=== PATIENT | female | born 1970 | race Two or more races ===

== ENCOUNTER 2017-12-03 16:28 | Emergency (ER) | payer OTHER ==
[~2017-12-03] VITALS: Ht 154.9 cm; Wt 129.3 kg
[2017-12-03 16:58] VITALS: BP 145/101
== END 2017-12-03 17:57 | disposition home or self-care (01) ==
LOC: ER 16:29
DX: R42 Dizziness and giddiness (principal); I10 Essential (primary) hypertension; E11.9 Type 2 diabetes mellitus without complications; E66.9 Obesity, unspecified; Z88.5 Allergy status to narcotic agent
CPT/HCPCS: 99283; A4606; Z7610

== ENCOUNTER 2018-05-25 10:49 | Emergency (ER) | payer OTHER ==
[~2018-05-25] VITALS: Ht 154.9 cm; Wt 127.0 kg
[2018-05-25 11:19] LABS: APPEARANCE,URINE Clear (CLEAR); BILIRUBIN,URINE Negative (NEGATIVE); BLOOD, URINE Negative Ery/uL (NEGATIVE); COLOR,URINE Yellow (YELLOW); KETONES,URINE Negative (NEGATIVE); LEUKOCYTE ESTERASE ,URINE Negative (NEGATIVE); NITRITE, URINE Negative (NEGATIVE); PROTEIN,URINE Negative (NEGATIVE); UGLUCOSE Negative (NEGATIVE); UROBILINOGEN,URINE 0.2 EU/dL (0.2)
[2018-05-25 11:21] LABS: BASOPHILS % (AUTO) 0.4 % (0.0-2.0); EOSINOPHILS % (AUTO) 3.2 % (0.0-6.0); HEMATOCRIT 42 % (33-45); HEMOGLOBIN 13.8 g/dL (11.5-14.8); LYMPHOCYTES # (AUTO) 2.7 /CMM (0.8-4.8); LYMPHOCYTES % (AUTO) 25.2 % (20.0-44.0); MEAN CORPUSCULAR HGB CONC 33 g/dl (31.0-36.0); MEAN CORPUSCULAR VOLUME 85 fL (82-100); MONOCYTES # (AUTO) 0.7 /CMM (0.1-1.30); MONOCYTES % (AUTO) 6.2 % (2.0-12.0); PLATELET COUNT (AUTO) 492 /CMM (150-450); RED BLOOD CELL COUNT(AUTO) 4.93 MIL/uL (4.0-5.2); WHITE BLOOD COUNT (AUTO) 10.7 K/uL (4.3-11.0)
--- NOTE | 2018-05-25 11:26 | NUR ---
patient presented to the ER Ran out of bp meds 3wks-My head feels like its inflated. on room air, breathing evenly and unlabored. connected to the monitor and pulse ox. kept comfortbale. will continue to monitor accordingly.
[2018-05-25 11:31] LABS: CALCIUM, SERUM 9.5 mg/dL (8.5-10.1); CARBON DIOXIDE 30 mmol/L (21-32); CHLORIDE 104 mmol/L (98-107); CREATININE 0.6 mg/dL (0.6-1.3); GLUCOSE 122 mg/dL (74-106); POTASSIUM 4.3 mmol/L (3.5-5.1); SODIUM SERUM 138 mmol/L (136-145); UREA NITROGEN, BLOOD 15 mg/dL (7-18)
[2018-05-25 11:37] LABS: ALANINE AMINOTRANSFERASE 22 U/L (12-78); ALBUMIN 3.4 g/dL (3.4-5.0); ALKALINE PHOSPHATASE 130 U/L (46-116); ASPARTATE AMINOTRANSFERASE 15 U/L (15-37); BILIRUBIN,DIRECT 0.1 mg/dL (0.0-0.2); BILIRUBIN,TOTAL 0.2 mg/dL (0.2-1.0); TOTAL PROTEIN, SERUM 8.1 g/dL (6.4-8.2)
[2018-05-25 14:08] VITALS: BP 129/81
--- NOTE | 2018-05-25 14:09 | NUR ---
Patient discharged to home in stable condition. Written and verbal after care instructions given. Patient verbalizes understanding of instruction.
== END 2018-05-25 14:09 | disposition home or self-care (01) ==
LOC: ER 10:55
DX: R51 Headache (principal); I10 Essential (primary) hypertension; E11.9 Type 2 diabetes mellitus without complications; R00.2 Palpitations; R00.0 Tachycardia, unspecified; F41.9 Anxiety disorder, unspecified; E66.9 Obesity, unspecified; Z88.5 Allergy status to narcotic agent; Z76.0 Encounter for issue of repeat prescription
CPT/HCPCS: 36415; 71045; 80048; 80076; 81001; 84484; 84703; 85025; 93005; 99284; A4606; 81000-TC

== ENCOUNTER 2019-01-25 11:27 | Emergency (ER) | payer MEDICAID, OTHER ==
[~2019-01-25] VITALS: Ht 154.9 cm; Wt 117.9 kg
--- NOTE | 2019-01-25 11:41 | NUR ---
PT BIB SELF C/O ABDOMINAL PAIN STARTED YESTERDAY, PT IS AAOX4, NOT IN RESPIRATORY DISTRESS, HOOKED TO MONITOR, KEPT RESTED AND COMFORTABLE, WILL CONTINUE TO MONITOR.
--- NOTE | 2019-01-25 11:44 | NUR ---
AT BEDSIDE FOR EVAL.
--- NOTE | 2019-01-25 11:48 | NUR ---
IV LINE ESTABLISHED, BLOOD DRAWN AND SENT TO LAB.
[2019-01-25] MEDS ORDERED: FAMOTIDINE/PF INJ 20 MG/2 ML VIAL IV ONE ×2 (11:56→12:00)
[2019-01-25] MEDS ORDERED: ONDANSETRON HCL/PF 4 MG/2 ML VIAL ONE (11:56)
--- NOTE | 2019-01-25 11:59 | NUR ---
MANAGER DEPARTMENT AT BEDSIDE FOR XRAY.
[2019-01-25] MEDS ORDERED: ONDANSETRON HCL/PF 4 MG/2 ML VIAL IVP ONE (12:00)
[2019-01-25] MEDS ORDERED: IV NS 0.9% 1,000 ML BAG IV ONE (12:00)
[2019-01-25 12:14] LABS: BASOPHILS # (AUTO) 0.1 /CMM (0.0-0.2); BASOPHILS % (AUTO) 0.7 % (0.0-2.0); EOSINOPHILS % (AUTO) 2.2 % (0.0-6.0); HEMATOCRIT 44 % (33-45); HEMOGLOBIN 14.2 g/dL (11.5-14.8); LYMPHOCYTES # (AUTO) 1.9 /CMM (0.8-4.8); LYMPHOCYTES % (AUTO) 24.4 % (20.0-44.0); MEAN CORPUSCULAR HGB CONC 32 g/dl (31.0-36.0); MEAN CORPUSCULAR VOLUME 86 fL (82-100); MONOCYTES # (AUTO) 0.4 /CMM (0.1-1.30); MONOCYTES % (AUTO) 5.5 % (2.0-12.0); NEUTROPHILS # (AUTO) 5.2 /CMM (1.8-8.9); NEUTROPHILS % (AUTO) 67.2 % (43.0-81.0); PLATELET COUNT (AUTO) 467 /CMM (150-450); RED BLOOD CELL COUNT(AUTO) 5.13 MIL/uL (4.0-5.2); WHITE BLOOD COUNT (AUTO) 7.8 K/uL (4.3-11.0)
[2019-01-25 12:19] LABS: APPEARANCE,URINE Clear (CLEAR); BILIRUBIN,URINE SMALL (NEGATIVE); BLOOD, URINE Negative Ery/uL (NEGATIVE); COLOR,URINE Yellow (YELLOW); KETONES,URINE Trace (NEGATIVE); LEUKOCYTE ESTERASE ,URINE Negative (NEGATIVE); NITRITE, URINE Negative (NEGATIVE); PH,URINE 6.5 (5.0-8.0); PROTEIN,URINE Trace mg/dl (NEGATIVE); UGLUCOSE Negative (NEGATIVE); UROBILINOGEN,URINE 0.2 EU/dL (0.2)
[2019-01-25 12:28] LABS: BACTERIA,URINE Few /HPF (None Seen); RBC,URINE 0-2 /HPF (0-2); SQUAMOUS EPITHELIAL CELL,UR Few /HPF (None Seen)
[2019-01-25 12:32] LABS: CALCIUM, SERUM 8.7 mg/dL (8.5-10.1); CREATININE 0.9 mg/dL (0.6-1.3); POTASSIUM 3.8 mmol/L (3.5-5.1)
[2019-01-25 12:38] LABS: ALBUMIN 3.3 g/dL (3.4-5.0); BILIRUBIN,DIRECT 0.1 mg/dL (0.0-0.2); BILIRUBIN,TOTAL 0.3 mg/dL (0.2-1.0); TOTAL PROTEIN, SERUM 8.5 g/dL (6.4-8.2)
--- NOTE | 2019-01-25 12:47 | NUR ---
PT IS BACK FROM THE CT SCAN.
[2019-01-25 13:16] VITALS: BP 138/81
--- NOTE | 2019-01-25 13:16 | NUR ---
IV removed. Catheter intact and site benign. Pressure and 4x4 applied to site. No bleeding noted. Patient discharged to home in stable condition. Written and verbal after care instructions given. Patient verbalizes understanding of instruction.
== END 2019-01-25 13:17 | disposition home or self-care (01) ==
LOC: ER 11:27
DX: R10.84 Generalized abdominal pain (principal); I10 Essential (primary) hypertension; E11.9 Type 2 diabetes mellitus without complications; Z88.6 Allergy status to analgesic agent
CPT/HCPCS: 36415; 71045; 74176; 80048; 80076; 81001; 83690; 85025; 96374; 96375; 99284; J2405; J3490; J7030; 81000-TC

== ENCOUNTER 2019-05-18 11:31 | Emergency (ER) | payer OTHER ==
[~2019-05-18] VITALS: Ht 154.9 cm; Wt 129.3 kg
--- NOTE | 2019-05-18 11:45 | NUR ---
patient bibhusband c/o pelvic cramping with nausea x 2 days. on room air, breathing evenly and unlabored. kept comfortable, will continue to monitor accordingly.
[2019-05-18] MEDS ORDERED: MAGNESIUM CITRATE 296 ML BOTTLE ONE (13:11)
[2019-05-18 13:18] VITALS: BP 133/91
--- NOTE | 2019-05-18 13:19 | NUR ---
Patient discharged to home in stable condition. Written and verbal after care instructions given. Patient verbalizes understanding of instruction.
[2019-05-18] MEDS ORDERED: MAGNESIUM CITRATE 296 ML BOTTLE PO ONE (13:30)
== END 2019-05-18 13:18 | disposition home or self-care (01) ==
LOC: ER 11:31
DX: K59.00 Constipation, unspecified (principal); I10 Essential (primary) hypertension; J45.909 Unspecified asthma, uncomplicated; E11.9 Type 2 diabetes mellitus without complications; Z88.6 Allergy status to analgesic agent
CPT/HCPCS: 74018

== ENCOUNTER 2019-10-18 20:51 | Emergency (ER) | payer MEDICAID, OTHER ==
[~2019-10-18] VITALS: Ht 154.9 cm; Wt 119.7 kg
--- NOTE | 2019-10-18 21:23 | NUR ---
BIBS FROM HOME TO ER BED 7. AAOX4. NOT IN RESP DISTRESS. AMBULATORY. CAMEI IN FOR LOWER ABDOMINAL PAIN X 7DAYS. DULL ACHING SENSATION /. REPORT NAUSEA, VOMMITING AND DIARRHEA. PT REPORTS THAT SHE HAVENT HAD A GOOD BOWEL MOVEMENT FOR THE PAST 7 DAYS, SHE DID REPORT HAVING A SMALL AMOUNT THIS MORNING. URINE COLLECTED AND SENT TO LAB. JOSE ALFREDO [facility]BROOK AT THE BEDSIDE FOR EVAL. AWAITING ORDERS
[2019-10-18] MEDS ORDERED: ONDANSETRON 4 MG TAB.RAPDIS SL ONE (21:30)
[2019-10-18] MEDS ORDERED: ONDANSETRON 4 MG TAB.RAPDIS ONE (21:32)
[2019-10-18 21:33] LABS: APPEARANCE,URINE Clear (CLEAR); BILIRUBIN,URINE Negative (NEGATIVE); BLOOD, URINE Negative Ery/uL (NEGATIVE); COLOR,URINE Yellow (YELLOW); KETONES,URINE Negative (NEGATIVE); LEUKOCYTE ESTERASE ,URINE Trace (NEGATIVE); NITRITE, URINE Negative (NEGATIVE); PH,URINE 6.5 (5.0-8.0); PROTEIN,URINE Negative (NEGATIVE); UGLUCOSE Negative (NEGATIVE); UROBILINOGEN,URINE 0.2 EU/dL (0.2)
[2019-10-18 21:45] LABS: BASOPHILS % (AUTO) 0.3 % (0.0-2.0); EOSINOPHILS % (AUTO) 4.4 % (0.0-6.0); HEMATOCRIT 42 % (33-45); HEMOGLOBIN 13.3 g/dL (11.5-14.8); LYMPHOCYTES # (AUTO) 2.6 /CMM (0.8-4.8); LYMPHOCYTES % (AUTO) 18.7 % (20.0-44.0); MEAN CORPUSCULAR HGB CONC 32 g/dl (31.0-36.0); MEAN CORPUSCULAR VOLUME 83 fL (82-100); MONOCYTES # (AUTO) 0.6 /CMM (0.1-1.30); NEUTROPHILS # (AUTO) 9.9 /CMM (1.8-8.9); NEUTROPHILS % (AUTO) 72.6 % (43.0-81.0); PLATELET COUNT (AUTO) 543 /CMM (150-450); RED BLOOD CELL COUNT(AUTO) 5.01 MIL/uL (4.0-5.2); WHITE BLOOD COUNT (AUTO) 13.7 K/uL (4.3-11.0)
[2019-10-18 22:02] LABS: ALBUMIN 3.2 g/dL (3.4-5.0); BILIRUBIN,DIRECT 0.1 mg/dL (0.0-0.2); BILIRUBIN,TOTAL 0.1 mg/dL (0.2-1.0); CREATININE 0.8 mg/dL (0.6-1.3); POTASSIUM 3.9 mmol/L (3.5-5.1); TOTAL PROTEIN, SERUM 7.8 g/dL (6.4-8.2)
[2019-10-18 22:32] LABS: BACTERIA,URINE Few /HPF (None Seen); RBC,URINE 0-2 /HPF (0-2); SQUAMOUS EPITHELIAL CELL,UR Moderate /HPF (None Seen)
[2019-10-18] MEDS ORDERED: ACETAMINOPHEN ES 500 MG TABLET ONE (22:48)
--- NOTE | 2019-10-18 22:52 | NUR ---
PT IS COMPLAINING OF PAIN. JOSE ALFREDO [facility] MADE AWARE. ORDERED TO GIVE TYLENOL 1000MG PO X 1. NOTED AND CARRIED OUT.
[2019-10-18] MEDS ORDERED: ACETAMINOPHEN ES 500 MG TABLET PO ONE (23:00)
[2019-10-18] MEDS ORDERED: KETOROLAC TROMETHAMINE INJ 30 MG/ML VIAL ONE (23:04)
[2019-10-18] MEDS ORDERED: CIPROFLOXACIN HCL 500 MG TABLET ONE (23:15)
[2019-10-18] MEDS ORDERED: METRONIDAZOLE 500 MG TABLET ONE (23:15)
[2019-10-18] MEDS ORDERED: KETOROLAC TROMETHAMINE INJ 60 MG/2 ML VIAL IM ONE (23:30)
[2019-10-18] MEDS ORDERED: CIPROFLOXACIN HCL 250 MG TABLET PO ONE (23:30)
[2019-10-18] MEDS ORDERED: METRONIDAZOLE 500 MG TABLET PO ONE (23:30)
[2019-10-18 23:37] VITALS: BP 164/92
--- NOTE | 2019-10-18 23:37 | NUR ---
Patient discharged to home in stable condition. Written and verbal after care instructions given. Patient verbalizes understanding of instruction. Pt ambulatory with a steady gait
== END 2019-10-18 23:38 | disposition home or self-care (01) ==
LOC: ER 20:51
DX: K57.32 Diverticulitis of large intestine without perforation or abscess without bleeding (principal); K59.00 Constipation, unspecified; E66.01 Morbid (severe) obesity due to excess calories; D72.829 Elevated white blood cell count, unspecified; E11.65 Type 2 diabetes mellitus with hyperglycemia; R74.8 Abnormal levels of other serum enzymes; I10 Essential (primary) hypertension; J45.909 Unspecified asthma, uncomplicated; Z68.42 Body mass index [BMI] 45.0-49.9, adult; Z90.49 Acquired absence of other specified parts of digestive tract; Z90.710 Acquired absence of both cervix and uterus; Z88.5 Allergy status to narcotic agent
CPT/HCPCS: 36415; 74021; 80048; 80076; 81001; 83690; 85025; 96372; 99284; J1885; Q0162; 81000-TC

== ENCOUNTER 2020-09-26 05:57 | Emergency (ER) | payer OTHER ==
[~2020-09-26] VITALS: Ht 154.9 cm; Wt 125.2 kg
--- NOTE | 2020-09-26 06:10 | NUR ---
PATIENT BIBS FOR C/O BILATERAL ABD PAIN AND NAUSEA X 2 DAYS. HX OF DIVERTICULITIS. PATIENT A/O X 4, RR EVEN AND UNLABORED, NO SOB NOTED, PATIENT CONNECTED TO BONDING MACHINE TENDER AND POX. WILL CONTINUE TO MONITOR.
--- NOTE | 2020-09-26 06:11 | NUR ---
URINE COLLECTED AND SENT TO LAB
[2020-09-26] MEDS ORDERED: KETOROLAC TROMETHAMINE INJ 30 MG/ML VIAL IV ONE (06:30)
[2020-09-26] MEDS ORDERED: ONDANSETRON HCL/PF 4 MG/2 ML VIAL IVP ONE (06:30)
[2020-09-26] MEDS ORDERED: IV NS 0.9% 1,000 ML BAG IV ONE (06:30)
[2020-09-26] MEDS ORDERED: ONDANSETRON HCL/PF 4 MG/2 ML VIAL ONE (06:32)
[2020-09-26] MEDS ORDERED: KETOROLAC TROMETHAMINE INJ 30 MG/ML VIAL ONE (06:32)
[2020-09-26 06:52] LABS: BASOPHILS # (AUTO) 0.1 K/uL (0.0-0.2); BASOPHILS % (AUTO) 0.6 % (0.0-2.0); HEMATOCRIT 41 % (33-45); HEMOGLOBIN 13.5 g/dL (11.5-14.8); LYMPHOCYTES # (AUTO) 2.6 K/uL (0.8-4.8); LYMPHOCYTES % (AUTO) 20.7 % (20.0-44.0); MEAN CORPUSCULAR HGB CONC 33 g/dl (31.0-36.0); MEAN CORPUSCULAR VOLUME 83 fL (82-100); MONOCYTES # (AUTO) 0.5 K/uL (0.1-1.30); MONOCYTES % (AUTO) 4.2 % (2.0-12.0); NEUTROPHILS # (AUTO) 9.1 K/uL (1.8-8.9); NEUTROPHILS % (AUTO) 72.5 % (43.0-81.0); PLATELET COUNT (AUTO) 494 K/uL (150-450); RED BLOOD CELL COUNT(AUTO) 4.98 MIL/uL (4.0-5.2); WHITE BLOOD COUNT (AUTO) 12.5 K/uL (4.3-11.0)
[2020-09-26 06:59] LABS: BILIRUBIN,URINE NEGATIVE (NEGATIVE); COLOR,URINE YELLOW (YELLOW); LEUKOCYTE ESTERASE ,URINE TRACE (NEGATIVE); NITRITE, URINE NEGATIVE (NEGATIVE); PROTEIN,URINE NEGATIVE (NEGATIVE); UGLUCOSE NEGATIVE (NEGATIVE); UROBILINOGEN,URINE 0.2 EU/dL (0.2)
[2020-09-26 07:00] LABS: ALBUMIN 3.4 g/dL (3.4-5.0); BILIRUBIN,DIRECT 0.1 mg/dL (0.0-0.2); BILIRUBIN,TOTAL 0.4 mg/dL (0.2-1.0); CALCIUM, SERUM 9.1 mg/dL (8.5-10.1); CREATININE 0.6 mg/dL (0.6-1.3); TOTAL PROTEIN, SERUM 8.4 g/dL (6.4-8.2)
[2020-09-26 07:16] LABS: POTASSIUM 3.9 mmol/L (3.5-5.1)
[2020-09-26 07:42] LABS: BACTERIA,URINE Few /HPF (None Seen); RBC,URINE 0-2 /HPF (0-2); SQUAMOUS EPITHELIAL CELL,UR Few /HPF (None Seen)
[2020-09-26] MEDS ORDERED: IV NS 0.9% 250 ML IV ONE (07:51)
[2020-09-26] MEDS ORDERED: IOHEXOL-300 100 ML VIAL IV ONE (07:51)
[2020-09-26] MEDS ORDERED: CT SWABBABLE VALVE TRANS SET 1 EA INFUS.SET MC ONE (07:51)
--- NOTE | 2020-09-26 08:05 | NUR ---
PT TO RADIOLOGY FOR CT ABDOMEN/PELVIS VIA WHEELCHAIR.
[2020-09-26] MEDS ORDERED: ONDA4TAB5 PO (08:42)
[2020-09-26] MEDS ORDERED: HYDR-4275 PO (08:42)
[2020-09-26] MEDS ORDERED: AMOX-430 PO (08:42)
--- NOTE | 2020-09-26 08:50 | NUR ---
Patient a/ox4, breathing even and unlabored, no sob noted. IV removed. Catheter intact and site benign. Pressure and 4x4 applied to site. No bleeding noted.
--- NOTE | 2020-09-26 08:52 | NUR ---
Patient discharged to home in stable condition. Written and verbal after care instructions given. Patient verbalizes understanding of instruction.
[2020-09-26 08:53] VITALS: BP 142/89
== END 2020-09-26 08:53 | disposition home or self-care (01) ==
LOC: ER 05:57
DX: K57.32 Diverticulitis of large intestine without perforation or abscess without bleeding (principal); R19.7 Diarrhea, unspecified; I10 Essential (primary) hypertension; J45.909 Unspecified asthma, uncomplicated; E11.9 Type 2 diabetes mellitus without complications; Z98.890 Other specified postprocedural states; Z90.49 Acquired absence of other specified parts of digestive tract; Z88.6 Allergy status to analgesic agent; Z79.899 Other long term (current) drug therapy
CPT/HCPCS: 36415; 74177; 80048; 80076; 81001; 83690; 84703; 85025; 96361; 96374; 96375; 99285; J1885; J2405; J7030; J7050; Q9967

== ENCOUNTER 2020-12-11 08:42 | Emergency (ER) | payer OTHER ==
[~2020-12-11] VITALS: Ht 154.9 cm; Wt 124.7 kg
[~2020-12-11 08:42] MED LIST: AMOX-430 PO; HYDR-4275 PO; ONDA4TAB5 PO
--- NOTE | 2020-12-11 08:55 | NUR ---
PT AMBULATORY TO ER BED 05 C/O SHORTNESS OF BREATH X 2 DAYS, STATES BEEN USING HER INHALER BUT IS NOT HELPING. STATES SYMPTOMS WORST TODAY W/ SOME BURNING SENSATION TO CHEST. PLACED ON MONITOR. O2 SATURATION 90% ON RA. AWAITING MD ACEVEDO.
--- NOTE | 2020-12-11 09:06 | NUR ---
DR REY AT BEDSIDE FOR EVAL.
[2020-12-11] MEDS ORDERED: methylPREDNISolone SOD SUCC 125 MG/2ML VIAL ONE (09:22)
[2020-12-11] MEDS ORDERED: ALBUTEROL FS 2.5 MG/3 ML VIAL.NEB ONE (09:27)
[2020-12-11] MEDS ORDERED: IPRATROPIUM NEB FS 0.5 MG/2.5 ML AMPUL.NEB ONE (09:27)
[2020-12-11] MEDS ORDERED: ALBU18HF2 INH (09:28)
[2020-12-11] MEDS ORDERED: PRED20TA PO (09:28)
[2020-12-11] MEDS ORDERED: AMOX-430 PO (09:28)
[2020-12-11] MEDS ORDERED: AZIT250T13 PO (09:28)
[2020-12-11] MEDS ORDERED: ALBUTEROL FS 2.5 MG/3 ML VIAL.NEB CONTNEB ONE (09:30)
[2020-12-11] MEDS ORDERED: methylPREDNISolone SOD SUCC 125 MG/2ML VIAL IV ONE (09:30)
[2020-12-11] MEDS ORDERED: IPRATROPIUM NEB FS 0.5 MG/2.5 ML AMPUL.NEB NEB ONE (09:30)
--- NOTE | 2020-12-11 09:32 | NUR ---
RT AT BEDSIDE FOR BREATHING TREATMENT.
[2020-12-11 09:38] LABS: BASOPHILS # (AUTO) 0.1 K/uL (0.0-0.2); BASOPHILS % (AUTO) 1.2 % (0.0-2.0); EOSINOPHILS % (AUTO) 2.7 % (0.0-6.0); HEMATOCRIT 40 % (33-45); HEMOGLOBIN 12.8 g/dL (11.5-14.8); LYMPHOCYTES # (AUTO) 1.5 K/uL (0.8-4.8); MEAN CORPUSCULAR HGB CONC 32 g/dl (31.0-36.0); MEAN CORPUSCULAR VOLUME 84 fL (82-100); MONOCYTES # (AUTO) 0.3 K/uL (0.1-1.30); MONOCYTES % (AUTO) 2.8 % (2.0-12.0); NEUTROPHILS # (AUTO) 9.3 K/uL (1.8-8.9); NEUTROPHILS % (AUTO) 80.3 % (43.0-81.0); PLATELET COUNT (AUTO) 471 K/uL (150-450); RED BLOOD CELL COUNT(AUTO) 4.81 MIL/uL (4.0-5.2); WHITE BLOOD COUNT (AUTO) 11.5 K/uL (4.3-11.0)
[2020-12-11 09:45] LABS: CALCIUM, SERUM 8.7 mg/dL (8.5-10.1); CARBON DIOXIDE 28 mmol/L (21-32); CHLORIDE 103 mmol/L (98-107); CREATININE 0.6 mg/dL (0.6-1.3); GLUCOSE 135 mg/dL (74-106); POTASSIUM 3.6 mmol/L (3.5-5.1); SODIUM SERUM 140 mmol/L (136-145); UREA NITROGEN, BLOOD 10 mg/dL (7-18)
--- NOTE | 2020-12-11 09:46 | NUR ---
covid swab collected and sent to lab.
--- NOTE | 2020-12-11 11:16 | NUR ---
Patient discharged to home in stable condition. Written and verbal after care instructions given. Patient verbalizes understanding of instruction.IV removed. Catheter intact and site benign. Pressure and 4x4 applied to site. No bleeding noted.
[2020-12-11 11:17] VITALS: BP 142/65
== END 2020-12-11 11:17 | disposition home or self-care (01) ==
LOC: ER 08:52
DX: J45.901 Unspecified asthma with (acute) exacerbation (principal); J18.9 Pneumonia, unspecified organism; Z20.822 Contact with and (suspected) exposure to COVID-19; E11.9 Type 2 diabetes mellitus without complications; I10 Essential (primary) hypertension; Z90.49 Acquired absence of other specified parts of digestive tract; Z90.710 Acquired absence of both cervix and uterus; Z88.5 Allergy status to narcotic agent; G47.33 Obstructive sleep apnea (adult) (pediatric)
CPT/HCPCS: 36415; 71045; 80048; 83880; 84484; 85025; 93005; 94640; 96374; 99285; C9803; J2930; U0003

== ENCOUNTER 2021-02-07 14:26 | Emergency (ER) | payer OTHER ==
[~2021-02-07] VITALS: Ht 154.9 cm; Wt 122.5 kg
[~2021-02-07 14:26] MED LIST changes: +ALBU18HF2 INH; +AZIT250T13 PO; +PRED20TA PO
[2021-02-07 14:43] VITALS: BP 185/110
--- NOTE | 2021-02-07 16:08 | NUR ---
PT NOT IN ROOM
== END 2021-02-07 16:45 | disposition left against medical advice (07) ==
LOC: ER 14:34
DX: Z53.21 Procedure and treatment not carried out due to patient leaving prior to being seen by health care provider (principal); R42 Dizziness and giddiness; R51.9 Headache, unspecified; I10 Essential (primary) hypertension; J45.909 Unspecified asthma, uncomplicated; E11.9 Type 2 diabetes mellitus without complications; Z90.49 Acquired absence of other specified parts of digestive tract; Z98.890 Other specified postprocedural states

== ENCOUNTER 2021-04-15 12:15 | Emergency (ER) | payer OTHER ==
[~2021-04-15] VITALS: Ht 154.9 cm; Wt 122.9 kg
[2021-04-15 12:23] VITALS: BP 141/86
--- NOTE | 2021-04-15 12:23 | NUR ---
DR AUSTIN AT BEDSIDE FOR EVAL.
[2021-04-15] MEDS ORDERED: predniSONE 20 MG TABLET ONE (12:27)
--- NOTE | 2021-04-15 12:29 | NUR ---
RADIOLOGY AT BEDSIDE FOR CHEST XRAY.
[2021-04-15] MEDS: predniSONE 20 MG TABLET PO ONE (12:32)
[2021-04-15] MEDS ORDERED: PRED50TA PO (13:16)
[2021-04-15] MEDS ORDERED: ALBU18HF2 INH (13:16)
== END 2021-04-15 14:04 | disposition home or self-care (01) ==
LOC: ER 12:19
DX: J45.901 Unspecified asthma with (acute) exacerbation (principal); Z20.822 Contact with and (suspected) exposure to COVID-19; I10 Essential (primary) hypertension; E11.9 Type 2 diabetes mellitus without complications; Z98.890 Other specified postprocedural states; Z90.49 Acquired absence of other specified parts of digestive tract; Z88.6 Allergy status to analgesic agent; Z79.899 Other long term (current) drug therapy
CPT/HCPCS: 71045; 87426; 99284; C9803; J7512

== ENCOUNTER 2021-07-04 15:43 | Emergency (ER) | payer OTHER ==
[~2021-07-04] VITALS: Ht 157.5 cm; Wt 120.7 kg
[~2021-07-04 15:43] MED LIST changes: +PRED50TA PO
--- NOTE | 2021-07-04 16:00 | NUR ---
pt came in c/o lower back pain,which started yesturday, plus constipation for couple of days. pt is a/o x4 connected to monitor.
--- NOTE | 2021-07-04 16:19 | NUR ---
URINE COLLECTED AND SENT TO THE LAB.
[2021-07-04] MEDS ORDERED: IV NS 0.9% 1,000 ML BAG IV ONE (16:30)
[2021-07-04 16:44] LABS: BASOPHILS # (AUTO) 0.1 K/uL (0.0-0.2); BASOPHILS % (AUTO) 0.8 % (0.0-2.0); HEMATOCRIT 45 % (33-45); HEMOGLOBIN 14.9 g/dL (11.5-14.8); LYMPHOCYTES # (AUTO) 2.8 K/uL (0.8-4.8); LYMPHOCYTES % (AUTO) 20.2 % (20.0-44.0); MEAN CORPUSCULAR HGB CONC 33 g/dl (31.0-36.0); MEAN CORPUSCULAR VOLUME 83 fL (82-100); MONOCYTES # (AUTO) 0.6 K/uL (0.1-1.30); MONOCYTES % (AUTO) 4.6 % (2.0-12.0); NEUTROPHILS # (AUTO) 9.8 K/uL (1.8-8.9); NEUTROPHILS % (AUTO) 71.4 % (43.0-81.0); PLATELET COUNT (AUTO) 502 K/uL (150-450); RED BLOOD CELL COUNT(AUTO) 5.44 MIL/uL (4.0-5.2); WHITE BLOOD COUNT (AUTO) 13.8 K/uL (4.3-11.0)
[2021-07-04] MEDS ORDERED: KETOROLAC TROMETHAMINE INJ 30 MG/ML VIAL ONE (16:52)
[2021-07-04] MEDS ORDERED: ACETAMINOPHEN 325 MG TABLET ONE (16:52)
[2021-07-04] MEDS ORDERED: ONDANSETRON HCL/PF 4 MG/2 ML VIAL ONE (16:52)
[2021-07-04 16:58] LABS: ALBUMIN 3.6 g/dL (3.4-5.0); BILIRUBIN,DIRECT 0.1 mg/dL (0.0-0.2); BILIRUBIN,TOTAL 0.4 mg/dL (0.2-1.0); CALCIUM, SERUM 9.7 mg/dL (8.5-10.1); CREATININE 0.8 mg/dL (0.6-1.3); TOTAL PROTEIN, SERUM 8.6 g/dL (6.4-8.2)
[2021-07-04] MEDS ORDERED: ACETAMINOPHEN 325 MG TABLET PO ONE (17:00)
[2021-07-04] MEDS ORDERED: ONDANSETRON HCL/PF 4 MG/2 ML VIAL IV ONE (17:00)
[2021-07-04] MEDS ORDERED: KETOROLAC TROMETHAMINE INJ 30 MG/ML VIAL IV ONE (17:00)
[2021-07-04 17:15] LABS: BILIRUBIN,URINE NEGATIVE (NEGATIVE); COLOR,URINE YELLOW (YELLOW); LEUKOCYTE ESTERASE ,URINE NEGATIVE (NEGATIVE); NITRITE, URINE POSITIVE (NEGATIVE); PROTEIN,URINE NEGATIVE (NEGATIVE); UGLUCOSE NEGATIVE (NEGATIVE); UROBILINOGEN,URINE 0.2 EU/dL (0.2)
[2021-07-04 17:24] LABS: BACTERIA,URINE 1+ /HPF (None Seen); RBC,URINE 0-2 /HPF (0-2); WBC,URINE 0-2 /HPF (0-3)
[2021-07-04] MEDS ORDERED: NITR100C PO (17:53)
[2021-07-04] MEDS ORDERED: FLUC150T PO (18:01)
[2021-07-04 18:05] VITALS: BP 111/83
--- NOTE | 2021-07-04 18:06 | NUR ---
Patient discharged to home in stable condition. RX,Written and verbal after care instructions given. Patient verbalizes understanding of instruction.IV removed. Catheter intact and site benign. Pressure and 4x4 applied to site. No bleeding noted.
== END 2021-07-04 18:13 | disposition home or self-care (01) ==
LOC: ER 15:53
DX: N39.0 Urinary tract infection, site not specified (principal); R10.84 Generalized abdominal pain; M54.50 Low back pain, unspecified; R11.0 Nausea; E66.01 Morbid (severe) obesity due to excess calories; I10 Essential (primary) hypertension; E78.00 Pure hypercholesterolemia, unspecified; J45.909 Unspecified asthma, uncomplicated; E11.9 Type 2 diabetes mellitus without complications; E78.5 Hyperlipidemia, unspecified; Z68.42 Body mass index [BMI] 45.0-49.9, adult; Z87.19 Personal history of other diseases of the digestive system; Z90.710 Acquired absence of both cervix and uterus; Z88.5 Allergy status to narcotic agent; Z79.51 Long term (current) use of inhaled steroids; Z79.52 Long term (current) use of systemic steroids; Z79.891 Long term (current) use of opiate analgesic; Z79.899 Other long term (current) drug therapy
CPT/HCPCS: 36415; 74021; 80048; 80076; 81001; 82962; 83690; 84703; 85025; 87086; 96361; 96374; 96375; 99284; J1885; J2405; J7030

== ENCOUNTER 2021-11-21 07:13 | Emergency (ER) | payer OTHER ==
[~2021-11-21] VITALS: Ht 154.9 cm; Wt 100.7 kg
[~2021-11-21 07:13] MED LIST changes: +FLUC150T PO; +NITR100C PO
[2021-11-21] MEDS ORDERED: IPRATROPIUM NEB FS 0.5 MG/2.5 ML AMPUL.NEB NEB ONE (07:30)
[2021-11-21] MEDS ORDERED: predniSONE 20 MG TABLET PO ONE (07:30)
[2021-11-21] MEDS ORDERED: ALBUTEROL FS 2.5 MG/3 ML VIAL.NEB NEB ONE (07:30)
--- NOTE | 2021-11-21 07:30 | NUR ---
BIBS, PT C/O SOB, CHEST PAIN, WEAKNESS, STATED SHE HAD A GASTRIC SLEEVE SEPTEMBER 05, 2021 & HAS LOST 60 LBS SINCE THAT DATE, HAS ASTHMA
[2021-11-21] MEDS ORDERED: IPRATROPIUM NEB FS 0.5 MG/2.5 ML AMPUL.NEB ONE (07:39)
[2021-11-21] MEDS ORDERED: ALBUTEROL FS 2.5 MG/3 ML VIAL.NEB ONE (07:39)
[2021-11-21] MEDS ORDERED: predniSONE 20 MG TABLET ONE ×2 (07:49→07:53)
--- NOTE | 2021-11-21 08:00 | NUR ---
COVID SWAB DONE AND SENT TO LAB
[2021-11-21] MEDS ORDERED: ALBU18HF2 INH (08:41)
[2021-11-21] MEDS ORDERED: PRED20TA PO (08:41)
[2021-11-21 09:23] VITALS: BP 93/44
== END 2021-11-21 09:18 | disposition home or self-care (01) ==
LOC: ER 07:21
DX: J45.901 Unspecified asthma with (acute) exacerbation (principal); Z20.822 Contact with and (suspected) exposure to COVID-19; E11.9 Type 2 diabetes mellitus without complications; Z88.5 Allergy status to narcotic agent; Z90.710 Acquired absence of both cervix and uterus; Z87.19 Personal history of other diseases of the digestive system
CPT/HCPCS: 99284; 71045; 87426; 94640 ×2; J7512; C9803

== ENCOUNTER → 2022-09-06 | Emergency (ER) | payer OTHER ==
[~2022-09-06] VITALS: Ht 154.9 cm; Wt 50.8 kg
[~2022-09-06] MED LIST changes: +CEFTRIAXONE 1GM BAG (ER ONLY) 1 GM/50 ML PIGGYBACK IV ONE; +CEFTRIAXONE 1GM BAG (ER ONLY) 50 ML IV ONE; +CIPR500T5 PO; +IV NS 0.9% 500 ML BAG IV ONE; +KETOROLAC TROMETHAMINE INJ 30 MG/ML VIAL IV ONE; +KETOROLAC TROMETHAMINE INJ 30 MG/ML VIAL ONE; +LIDOCAINE VISCOUS 2% UD 15 ML UDC MM ONE; +LIDOCAINE VISCOUS 2% UD 15 ML UDC ONE; +MAG HYDROX/AL HYDROX/SIMETH 30 ML UDC ONE; +MAG HYDROX/AL HYDROX/SIMETH 30 ML UDC PO ONE; +ONDANSETRON HCL/PF 4 MG/2 ML VIAL IVP ONE; +ONDANSETRON HCL/PF 4 MG/2 ML VIAL ONE
--- NOTE | 2022-09-06 02:46 | NUR ---
Patient AOx4, able to express her concerns. Ashutosh states she woke up yesterday with chest, epigastric and abdominal pain. States she has had back pain for over 2 weeks. Patient also reports diarrhea, started yesterday. Discussed plan of care, ashutosh verbalized agreement. MD at bedside discussing plan of care All safety precautions taken.
--- NOTE | 2022-09-06 02:47 | NUR ---
DR. BUSBY AT BEDSIDE
--- NOTE | 2022-09-06 02:55 | NUR ---
EMT AT PT'S BEDSIDE
--- NOTE | 2022-09-06 03:20 | NUR ---
BLOOD DRAWN AND SENT TO LAB AWAITING RESULTS
--- NOTE | 2022-09-06 03:30 | NUR ---
URINE COLLECTED AND SENT TO LAB, AWAITING RESULTS
[2022-09-06 04:09] LABS: ALANINE AMINOTRANSFERASE 318 U/L (12-78); ALBUMIN 3.6 g/dL (3.4-5.0); ALKALINE PHOSPHATASE 167 U/L (46-116); ASPARTATE AMINOTRANSFERASE 584 U/L (15-37); BILIRUBIN,DIRECT 0.4 mg/dL (0.0-0.2); CALCIUM, SERUM 9.1 mg/dL (8.5-10.1); CARBON DIOXIDE 23 mmol/L (21-32); CHLORIDE 104 mmol/L (98-107); CREATININE 0.5 mg/dL (0.6-1.3); GLUCOSE 153 mg/dL (74-106); LIPASE 127 U/L (73-393); POTASSIUM 4.1 mmol/L (3.5-5.1); SODIUM SERUM 139 mmol/L (136-145); TOTAL PROTEIN, SERUM 7.5 g/dL (6.4-8.2); UREA NITROGEN, BLOOD 21 mg/dL (7-18)
[2022-09-06 04:13] LABS: BILIRUBIN,URINE 1+ (NEGATIVE); COLOR,URINE DARK YELLOW (YELLOW); LEUKOCYTE ESTERASE ,URINE TRACE (NEGATIVE); NITRITE, URINE POSITIVE (NEGATIVE); PROTEIN,URINE TRACE mg/dl (NEGATIVE); UGLUCOSE NEGATIVE (NEGATIVE)
[2022-09-06 04:14] LABS: BACTERIA,URINE Few /HPF (None Seen); SQUAMOUS EPITHELIAL CELL,UR Rare /HPF (None Seen)
[2022-09-06 04:22] LABS: BASOPHILS % (AUTO) 0.1 % (0.0-2.0); EOSINOPHILS % (AUTO) 0.3 % (0.0-6.0); HEMATOCRIT 43 % (33-45); HEMOGLOBIN 14.1 g/dL (11.5-14.8); LYMPHOCYTES # (AUTO) 0.3 K/uL (0.8-4.8); LYMPHOCYTES % (AUTO) 3.1 % (20.0-44.0); MEAN CORPUSCULAR HGB CONC 33 g/dl (31.0-36.0); MEAN CORPUSCULAR VOLUME 87 fL (82-100); MONOCYTES # (AUTO) 0.2 K/uL (0.1-1.30); MONOCYTES % (AUTO) 2.2 % (2.0-12.0); NEUTROPHILS # (AUTO) 9.9 K/uL (1.8-8.9); NEUTROPHILS % (AUTO) 94.3 % (43.0-81.0); PLATELET COUNT (AUTO) 341 K/uL (150-450); RED BLOOD CELL COUNT(AUTO) 4.91 MIL/uL (4.0-5.2); WHITE BLOOD COUNT (AUTO) 10.5 K/uL (4.3-11.0)
[2022-09-06 09:56] VITALS: BP 116/66
== END | disposition home or self-care (01) ==
LOC: ER 02:34
DX: N39.0 Urinary tract infection, site not specified (principal); R10.84 Generalized abdominal pain; R11.2 Nausea with vomiting, unspecified; I10 Essential (primary) hypertension; E78.00 Pure hypercholesterolemia, unspecified; E11.9 Type 2 diabetes mellitus without complications; J45.909 Unspecified asthma, uncomplicated; Z90.710 Acquired absence of both cervix and uterus; Z88.8 Allergy status to other drugs, medicaments and biological substances; Z79.51 Long term (current) use of inhaled steroids; Z79.899 Other long term (current) drug therapy
CPT/HCPCS: 99285; 74176; 96365; 71045; 96375; 96361; 93005; 85025; 80048; 87086; 83690; 80076; 81001; 36415; 84484; 85730; J1885; J2405; J7040 ×2; J0696

== ENCOUNTER 2022-11-20 13:57 | Emergency (ER) | payer MEDICAID, OTHER ==
[~2022-11-20] VITALS: Ht 154.9 cm; Wt 81.6 kg
[~2022-11-20 13:57] MED LIST changes: -CEFTRIAXONE 1GM BAG (ER ONLY) 1 GM/50 ML PIGGYBACK IV ONE; -CEFTRIAXONE 1GM BAG (ER ONLY) 50 ML IV ONE; -IV NS 0.9% 500 ML BAG IV ONE; -KETOROLAC TROMETHAMINE INJ 30 MG/ML VIAL IV ONE; -KETOROLAC TROMETHAMINE INJ 30 MG/ML VIAL ONE; -LIDOCAINE VISCOUS 2% UD 15 ML UDC MM ONE; -LIDOCAINE VISCOUS 2% UD 15 ML UDC ONE; -MAG HYDROX/AL HYDROX/SIMETH 30 ML UDC ONE; -MAG HYDROX/AL HYDROX/SIMETH 30 ML UDC PO ONE; -ONDANSETRON HCL/PF 4 MG/2 ML VIAL IVP ONE; -ONDANSETRON HCL/PF 4 MG/2 ML VIAL ONE
[2022-11-20 16:05] LABS: APPEARANCE,URINE CLEAR (CLEAR); BILIRUBIN,URINE NEGATIVE (NEGATIVE); BLOOD, URINE NEGATIVE Ery/uL (NEGATIVE); COLOR,URINE YELLOW (YELLOW); KETONES,URINE NEGATIVE (NEGATIVE); LEUKOCYTE ESTERASE ,URINE NEGATIVE (NEGATIVE); NITRITE, URINE NEGATIVE (NEGATIVE); PROTEIN,URINE NEGATIVE (NEGATIVE); UGLUCOSE NEGATIVE (NEGATIVE); UROBILINOGEN,URINE 0.2 EU/dL (0.2)
[2022-11-20] MEDS ORDERED: GUAI-671 PO (16:08)
[2022-11-20] MEDS ORDERED: CARI350T PO (16:08)
[2022-11-20 16:28] VITALS: BP 112/65; TEMP 99; O2SAT 97
[2022-11-21] MEDS ORDERED: PRED50TA PO (18:43)
== END 2022-11-20 16:14 | disposition home or self-care (01) ==
LOC: ER 14:22
DX: J40 Bronchitis, not specified as acute or chronic (principal); M54.50 Low back pain, unspecified; I10 Essential (primary) hypertension; E78.00 Pure hypercholesterolemia, unspecified; E11.9 Type 2 diabetes mellitus without complications; Z88.8 Allergy status to other drugs, medicaments and biological substances; Z90.710 Acquired absence of both cervix and uterus; Z90.49 Acquired absence of other specified parts of digestive tract; Z79.51 Long term (current) use of inhaled steroids; Z79.52 Long term (current) use of systemic steroids; Z79.899 Other long term (current) drug therapy
CPT/HCPCS: 71045-TC

== ENCOUNTER 2022-11-21 16:32 | Emergency (ER) | payer OTHER ==
[~2022-11-21] VITALS: Ht 154.9 cm; Wt 81.6 kg
[~2022-11-21 16:32] MED LIST changes: +CARI350T PO; +GUAI-671 PO
[2022-11-21] MEDS ORDERED: predniSONE 20 MG TABLET ONE (17:08)
[2022-11-21] MEDS ORDERED: IPRATROPIUM NEB FS 0.5 MG/2.5 ML AMPUL.NEB ONE (17:14)
[2022-11-21] MEDS ORDERED: ALBUTEROL FS 2.5 MG/3 ML VIAL.NEB ONE (17:14)
[2022-11-21 17:19] VITALS: O2SAT 97
[2022-11-21] MEDS ORDERED: predniSONE 20 MG TABLET PO ONE (17:30)
[2022-11-21] MEDS ORDERED: IPRATROPIUM NEB FS 0.5 MG/2.5 ML AMPUL.NEB NEB ONE (17:30)
[2022-11-21] MEDS ORDERED: ALBUTEROL FS 2.5 MG/3 ML VIAL.NEB NEB ONE (17:30)
[2022-11-21 17:36] VITALS: O2SAT 100
[2022-11-21 17:38] VITALS: O2SAT 100
[2022-11-21 17:46] VITALS: O2SAT 100
[2022-11-21] MEDS ORDERED: PRED50TA PO (18:43)
[2022-11-21 18:55] VITALS: BP 131/75; TEMP 98.9; O2SAT 96
== END 2022-11-21 18:56 | disposition home or self-care (01) ==
LOC: ER 16:32
DX: J45.901 Unspecified asthma with (acute) exacerbation (principal); I10 Essential (primary) hypertension; E78.00 Pure hypercholesterolemia, unspecified; E11.9 Type 2 diabetes mellitus without complications; Z90.710 Acquired absence of both cervix and uterus; Z90.49 Acquired absence of other specified parts of digestive tract; Z88.8 Allergy status to other drugs, medicaments and biological substances; Z20.822 Contact with and (suspected) exposure to COVID-19
CPT/HCPCS: 99285; 71045; 87426; 94640 ×2; J7512; C9803

== ENCOUNTER 2024-02-26 07:50 | Emergency (ER) | payer OTHER ==
[~2024-02-26] VITALS: Ht 154.9 cm; Wt 84.8 kg
[2024-02-26 08:29] LABS: BASOPHILS % (AUTO) 0.6 % (0.0-2.0); EOSINOPHILS # (AUTO) 0.2 K/uL (0.0-0.7); EOSINOPHILS % (AUTO) 2.8 % (0.0-6.0); HEMATOCRIT 41 % (33-45); HEMOGLOBIN 13.6 g/dL (11.5-14.8); LYMPHOCYTES # (AUTO) 1.9 K/uL (0.8-4.8); LYMPHOCYTES % (AUTO) 31.3 % (20.0-44.0); MEAN CORPUSCULAR HEMOGLOBIN 30 PG (26.0-33.0); MEAN CORPUSCULAR HGB CONC 33 g/dl (31.0-36.0); MEAN CORPUSCULAR VOLUME 90 fL (82-100); MONOCYTES # (AUTO) 0.4 K/uL (0.1-1.30); MONOCYTES % (AUTO) 5.9 % (2.0-12.0); NEUTROPHILS # (AUTO) 3.7 K/uL (1.8-8.9); NEUTROPHILS % (AUTO) 59.4 % (43.0-81.0); PLATELET COUNT (AUTO) 338 K/uL (150-450); RED BLOOD CELL COUNT(AUTO) 4.53 MIL/uL (4.0-5.2); RED CELL DISTRIBUTION WIDTH 13.1 % (11.5-15.0); WHITE BLOOD COUNT (AUTO) 6.2 K/uL (4.3-11.0)
[2024-02-26 08:38] LABS: CARBON DIOXIDE 27 mmol/L (21-32); CHLORIDE 110 mmol/L (98-107); CREATININE 0.5 mg/dL (0.6-1.3); GLUCOSE 96 mg/dL (74-106); POTASSIUM 4.2 mmol/L (3.5-5.1); SODIUM SERUM 141 mmol/L (136-145); UREA NITROGEN, BLOOD 13 mg/dL (7-18)
[2024-02-26 10:17] VITALS: BP 115/72; TEMP 98.2; O2SAT 100
== END 2024-02-26 10:30 | disposition home or self-care (01) ==
LOC: ER 07:56
DX: R00.2 Palpitations (principal); E11.9 Type 2 diabetes mellitus without complications; E78.5 Hyperlipidemia, unspecified; F41.9 Anxiety disorder, unspecified; I10 Essential (primary) hypertension; I21.9 Acute myocardial infarction, unspecified; J45.909 Unspecified asthma, uncomplicated; Z79.52 Long term (current) use of systemic steroids; Z88.5 Allergy status to narcotic agent; Z90.49 Acquired absence of other specified parts of digestive tract; Z86.79 Personal history of other diseases of the circulatory system; Z87.19 Personal history of other diseases of the digestive system
CPT/HCPCS: 36415; 71045-TC; 80048-TC; 84443-TC; 84484-TC; 85025-TC

== ENCOUNTER 2024-05-05 21:39 | Emergency (ER) | payer OTHER ==
[~2024-05-05] VITALS: Ht 154.9 cm; Wt 59.0 kg
[2024-05-05 22:09] VITALS: BP 136/82; TEMP 98.1
[2024-05-05] MEDS ORDERED: KETOROLAC TROMETHAMINE INJ 30 MG/ML VIAL ONE (22:31)
[2024-05-05] MEDS: KETOROLAC TROMETHAMINE INJ 30 MG/ML VIAL IM ONE (22:35)
[2024-05-05 22:49] VITALS: O2SAT 98
[2024-05-06] MEDS ORDERED: IBUP-1955 PO (09:33)
[2024-05-06] MEDS ORDERED: CYCL5TAB PO (09:33)
[2024-05-06] MEDS ORDERED: LIDO30AD10 TP (09:33)
== END 2024-05-05 23:07 | disposition home or self-care (01) ==
LOC: ER 21:44
DX: M65.28 Calcific tendinitis, other site (principal); J45.909 Unspecified asthma, uncomplicated; Z79.52 Long term (current) use of systemic steroids; Z90.49 Acquired absence of other specified parts of digestive tract
CPT/HCPCS: 99283; 96372; 73030; J1885

== ENCOUNTER 2024-05-06 08:55 | Emergency (ER) | payer OTHER ==
[~2024-05-06] VITALS: Ht 154.9 cm; Wt 81.6 kg
[2024-05-06] MEDS ORDERED: LIDO30AD10 TP (09:33)
[2024-05-06] MEDS ORDERED: CYCL5TAB PO (09:33)
[2024-05-06] MEDS ORDERED: IBUP-1955 PO (09:33)
[2024-05-06] MEDS ORDERED: KETOROLAC TROMETHAMINE 15 MG/ML VIAL ONE (09:42)
[2024-05-06] MEDS ORDERED: LIDOCAINE 5% (PATCH) 1 EA PATCH TP ONE (09:42)
[2024-05-06] MEDS ORDERED: CYCLOBENZAPRINE 10 MG TABLET ONE (09:42)
[2024-05-06] MEDS ORDERED: LIDOCAINE HCL/MPF 1% 30 ML VIAL IJ ONE (09:49)
[2024-05-06] MEDS: LIDOCAINE 5% (PATCH) 1 EA PATCH TP STA (09:54)
[2024-05-06] MEDS: KETOROLAC TROMETHAMINE 15 MG/ML VIAL IM ONE (09:54)
[2024-05-06] MEDS: CYCLOBENZAPRINE 10 MG TABLET PO ONE (09:55)
[2024-05-06 09:58] VITALS: BP 138/74; TEMP 98.2; O2SAT 99
== END 2024-05-06 09:58 | disposition home or self-care (01) ==
LOC: ER 08:57
DX: M75.31 Calcific tendinitis of right shoulder (principal); M12.811 Other specific arthropathies, not elsewhere classified, right shoulder; E11.9 Type 2 diabetes mellitus without complications; E78.5 Hyperlipidemia, unspecified; F41.9 Anxiety disorder, unspecified; I10 Essential (primary) hypertension; J45.909 Unspecified asthma, uncomplicated; Z79.52 Long term (current) use of systemic steroids; Z90.49 Acquired absence of other specified parts of digestive tract
CPT/HCPCS: 99283; 96372; J1885; J3490

== ENCOUNTER 2024-05-25 09:02 | Emergency (ER) | payer OTHER ==
[~2024-05-25] VITALS: Ht 154.9 cm; Wt 74.4 kg
[~2024-05-25 09:02] MED LIST changes: +CYCL5TAB PO; +IBUP-1955 PO; +LIDO30AD10 TP
[2024-05-25 09:51] LABS: BASOPHILS % (AUTO) 0.7 % (0.0-2.0); EOSINOPHILS # (AUTO) 0.2 K/uL (0.0-0.7); EOSINOPHILS % (AUTO) 4.1 % (0.0-6.0); HEMATOCRIT 40 % (33-45); HEMOGLOBIN 13.3 g/dL (11.5-14.8); LYMPHOCYTES # (AUTO) 1.4 K/uL (0.8-4.8); LYMPHOCYTES % (AUTO) 23.5 % (20.0-44.0); MEAN CORPUSCULAR HEMOGLOBIN 29 PG (26.0-33.0); MEAN CORPUSCULAR HGB CONC 33 g/dl (31.0-36.0); MEAN CORPUSCULAR VOLUME 88 fL (82-100); MONOCYTES # (AUTO) 0.5 K/uL (0.1-1.30); MONOCYTES % (AUTO) 8.1 % (2.0-12.0); NEUTROPHILS # (AUTO) 3.8 K/uL (1.8-8.9); NEUTROPHILS % (AUTO) 63.6 % (43.0-81.0); PLATELET COUNT (AUTO) 368 K/uL (150-450); RED BLOOD CELL COUNT(AUTO) 4.52 MIL/uL (4.0-5.2)
[2024-05-25 10:10] LABS: CALCIUM, SERUM 9.1 mg/dL (8.5-10.1); CARBON DIOXIDE 27 mmol/L (21-32); CHLORIDE 106 mmol/L (98-107); CREATININE 0.4 mg/dL (0.6-1.3); GLUCOSE 84 mg/dL (74-106); POTASSIUM 4.8 mmol/L (3.5-5.1); SODIUM SERUM 138 mmol/L (136-145); UREA NITROGEN, BLOOD 15 mg/dL (7-18)
[2024-05-25 10:19] LABS: NT-PRO BNP 43 pg/mL (0-125)
[2024-05-25 10:30] LABS: ALBUMIN 3.5 g/dL (3.4-5.0); BILIRUBIN,DIRECT 0.1 mg/dL (0.0-0.2); BILIRUBIN,TOTAL 0.5 mg/dL (0.2-1.0); TOTAL PROTEIN, SERUM 7.6 g/dL (6.4-8.2)
[2024-05-25 11:30] VITALS: BP 125/64; TEMP 97.9; O2SAT 99
[2024-05-25 11:39] LABS: APPEARANCE,URINE CLEAR (CLEAR); BILIRUBIN,URINE NEGATIVE (NEGATIVE); BLOOD, URINE NEGATIVE Ery/uL (NEGATIVE); COLOR,URINE YELLOW (YELLOW); KETONES,URINE NEGATIVE (NEGATIVE); LEUKOCYTE ESTERASE ,URINE NEGATIVE (NEGATIVE); NITRITE, URINE NEGATIVE (NEGATIVE); PROTEIN,URINE NEGATIVE (NEGATIVE); UGLUCOSE NEGATIVE (NEGATIVE); UROBILINOGEN,URINE 0.2 EU/dL (0.2)
== END 2024-05-25 12:19 | disposition home or self-care (01) ==
LOC: ER 09:15
DX: S39.011A Strain of muscle, fascia and tendon of abdomen, initial encounter (principal); M54.50 Low back pain, unspecified; I10 Essential (primary) hypertension; J45.909 Unspecified asthma, uncomplicated; E11.9 Type 2 diabetes mellitus without complications; E78.5 Hyperlipidemia, unspecified; F41.9 Anxiety disorder, unspecified; Z79.52 Long term (current) use of systemic steroids; Z90.49 Acquired absence of other specified parts of digestive tract; Z90.710 Acquired absence of both cervix and uterus; Z98.84 Bariatric surgery status; X58.XXXA Exposure to other specified factors, initial encounter; Y93.89 Activity, other specified; Y92.89 Other specified places as the place of occurrence of the external cause; Y99.8 Other external cause status
CPT/HCPCS: 36415; 71045-TC; 80048-TC; 80076-TC; 83690-TC; 83880; 84484-TC; 85025-TC

== ENCOUNTER 2024-08-13 18:48 | Emergency (ER) | payer OTHER ==
[~2024-08-13] VITALS: Ht 154.9 cm; Wt 80.7 kg
[2024-08-13] MEDS ORDERED: AZITHROMYCIN 500 MG VIAL ONE (19:35)
[2024-08-13] MEDS ORDERED: methylPREDNISolone SOD SUCC 125 MG/2ML VIAL ONE (19:35)
[2024-08-13] MEDS ORDERED: CEFTRIAXONE 1GM BAG (ER ONLY) 50 ML IV ONE (19:35)
[2024-08-13 19:48] LABS: BASOPHILS % (AUTO) 0.4 % (0.0-2.0); EOSINOPHILS % (AUTO) 0.5 % (0.0-6.0); HEMATOCRIT 40 % (33-45); HEMOGLOBIN 13.3 g/dL (11.5-14.8); LYMPHOCYTES # (AUTO) 1.4 K/uL (0.8-4.8); LYMPHOCYTES % (AUTO) 19.1 % (20.0-44.0); MEAN CORPUSCULAR HEMOGLOBIN 29 PG (26.0-33.0); MEAN CORPUSCULAR HGB CONC 33 g/dl (31.0-36.0); MEAN CORPUSCULAR VOLUME 87 fL (82-100); MONOCYTES # (AUTO) 0.4 K/uL (0.1-1.30); MONOCYTES % (AUTO) 5.9 % (2.0-12.0); NEUTROPHILS # (AUTO) 5.3 K/uL (1.8-8.9); NEUTROPHILS % (AUTO) 74.1 % (43.0-81.0); PLATELET COUNT (AUTO) 304 K/uL (150-450); RED BLOOD CELL COUNT(AUTO) 4.58 MIL/uL (4.0-5.2); RED CELL DISTRIBUTION WIDTH 13.7 % (11.5-15.0); WHITE BLOOD COUNT (AUTO) 7.2 K/uL (4.3-11.0)
[2024-08-13] MEDS: IV NS 0.9% 1,000 ML BAG IV ONE (19:53)
[2024-08-13] MEDS: methylPREDNISolone SOD SUCC 125 MG/2ML VIAL IV ONE (19:53)
[2024-08-13] MEDS: CEFTRIAXONE 1GM BAG (ER ONLY) 50 ML IV ONE (19:53)
[2024-08-13 19:56] LABS: CALCIUM, SERUM 9.4 mg/dL (8.5-10.1); CARBON DIOXIDE 25 mmol/L (21-32); CHLORIDE 102 mmol/L (98-107); CREATININE 0.5 mg/dL (0.6-1.3); GLUCOSE 92 mg/dL (74-106); POTASSIUM 3.5 mmol/L (3.5-5.1); SODIUM SERUM 136 mmol/L (136-145); UREA NITROGEN, BLOOD 10 mg/dL (7-18)
[2024-08-13 19:59] LABS: INR 1.02 (0.91-1.10); PARTIAL THROMBOPLASTIN TIME 37.3 SEC (24.3-34.3); PROTHROMBIN TIME 10.8 SECS (9.2-11.1)
[2024-08-13 20:02] LABS: ALANINE AMINOTRANSFERASE 23 U/L (12-78); ALKALINE PHOSPHATASE 117 U/L (46-116); ASPARTATE AMINOTRANSFERASE 27 U/L (15-37); BILIRUBIN,DIRECT 0.1 mg/dL (0.0-0.2); BILIRUBIN,TOTAL 0.5 mg/dL (0.2-1.0); TOTAL PROTEIN, SERUM 8.2 g/dL (6.4-8.2)
[2024-08-13] MEDS ORDERED: ALBUTEROL FS 2.5 MG/3 ML VIAL.NEB ONE (20:07)
[2024-08-13] MEDS ORDERED: IPRATROPIUM NEB FS 0.5 MG/2.5 ML AMPUL.NEB ONE (20:07)
[2024-08-13 20:10] VITALS: O2SAT 90
[2024-08-13 20:11] LABS: ALBUMIN < 3.0 g/dL (3.4-5.0)
[2024-08-13] MEDS: IPRATROPIUM NEB FS 0.5 MG/2.5 ML AMPUL.NEB NEB ONE (20:13)
[2024-08-13] MEDS: ALBUTEROL FS 2.5 MG/3 ML VIAL.NEB CONTNEB ONE (20:13)
[2024-08-13] MEDS: AZITHROMYCIN 500 MG in IV D5W 250 ML IV ONE (20:14)
[2024-08-13] MEDS ORDERED: ALBU18HF2 INH (21:09)
[2024-08-13] MEDS ORDERED: PRED50TA PO (21:09)
[2024-08-13] MEDS ORDERED: AZIT250T13 PO (21:09)
[2024-08-13 21:44] VITALS: BP 112/81; TEMP 99.3; O2SAT 93
== END 2024-08-13 21:45 | disposition home or self-care (01) ==
LOC: ER 18:52
DX: J45.901 Unspecified asthma with (acute) exacerbation (principal); F41.9 Anxiety disorder, unspecified; Z79.52 Long term (current) use of systemic steroids; Z90.49 Acquired absence of other specified parts of digestive tract; Z87.19 Personal history of other diseases of the digestive system; Z20.822 Contact with and (suspected) exposure to COVID-19
CPT/HCPCS: 99285; 96365; 71045; 96375; 87426; 96368; 93005; 84145; 85025; 80048; 87040 ×2; 87804; 83605; 80076; 36415; 84484; 85730; 83880; 94640; J2919; J7030; J0456; J0696; J7060